=== PATIENT | female | born 1945 | race Caucasian/White ===

== ENCOUNTER 2018-01-14 14:59 | Outpatient (CLI) | payer OTHER | END 2018-01-14 15:07 | disposition home or self-care (01) | LOC: MAMO-SONO 14:59 | DX: Z12.31 Encounter for screening mammogram for malignant neoplasm of breast (principal); N60.11 Diffuse cystic mastopathy of right breast ==

== ENCOUNTER 2019-01-27 14:43 | Outpatient (CLI) | payer OTHER | END 2019-01-27 14:45 | disposition home or self-care (01) | LOC: MAMO-SONO 14:43 | DX: N60.11 Diffuse cystic mastopathy of right breast (principal); Z12.31 Encounter for screening mammogram for malignant neoplasm of breast ==